=== PATIENT | female | born 1935 | race Caucasian/White ===

== ENCOUNTER → 2016-11-01 | Outpatient (CLI) | payer MEDICARE, OTHER ==
[~2016-11-01] MED LIST: AMLO10TA2 PO; ATOR20TA15 PO; ATOR20TA42 PO; DIGO0.12 PO; GLIP10TA6 PO; GLIP10TA67 PO; LATA.005%O EACH EYE; LATA0.002 EACH EYE; LOSA25TA PO; METF500T PO; ONGL5TAB PO; TOPR50TA PO; [UNRECOGNIZED DRUG - CODE] PO
[2016-11-01 12:02] LABS: AUTOMATED NEUTROPHIL # 6.6 TH/MM3 (1.8-7.7); BASOPHIL % 0.5 % (0.0-2.0); EOSINOPHIL # 0.1 TH/MM3 (0-0.4); EOSINOPHIL % 1.6 % (0.0-4.0); HEMATOCRIT 35.7 % (35.0-46.0); HEMO FLAGS DIFF FINAL; LYMPH % 16.2 % (9.0-44.0); LYMPHOCYTE # 1.4 TH/MM3 (1.0-4.8); MEAN CELL VOLUME 91.4 FL (80.0-100.0); MEAN CORPUSCULAR HGB CONC 32.9 % (32.0-36.0); MONO % 6.5 % (0.0-8.0); NEUT % 75.2 % (16.0-70.0); PLATELET COUNT 205 TH/MM3 (150-450); RED BLOOD COUNT 3.91 MIL/MM3 (4.00-5.30); WHITE BLOOD COUNT 8.7 TH/MM3 (4.0-11.0)
[2016-11-01 12:09] LABS: PROTHROMBIN TIME - PATIENT 10.8 SEC (9.8-11.6)
--- NOTE | 2016-11-01 12:22 | RADRPT ---
EXAM DATE/TIME: 11/01/2016 11:37 [place] COMPARISON: No previous studies available for comparison. INDICATIONS : Evaluate for pneumonia, pneumothorax or communicable disease. Preop chest for uterine surgery on 11/13 MEDICAL HISTORY : Carcinoma, vulva. Cardiovascular disease. skin cancer SURGICAL HISTORY : Pacemaker. Hysterectomy. ENCOUNTER: Initial ACUITY: 1 day PAIN SCORE: 0/10 LOCATION: Bilateral chest FINDINGS: A pacemaker is implanted in the left chest. The heart and pulmonary vascularity are normal. The por tions of the bony skeleton visualized reveal degenerative changes. CONCLUSION: Pacemaker. Otherwise, negative. Jose Miguel Denis MD FACR on November 01, 2016 at 12:11 Board Certified Radiologist. This report was verified electronically.
[2016-11-01 12:27] LABS: ANION GAP 9 MEQ/L (5-15); AST (GOT) 16 U/L (15-37); BICARBONATE 25.7 MEQ/L (21.0-32.0); BLOOD UREA NITROGEN 21 MG/DL (7-18); CHLORIDE 106 MEQ/L (98-107); GLOMERULAR FILTRATION RATE 74 ML/MIN (>89); GLUCOSE,FASTING 140 MG/DL (74-99); POTASSIUM 4.3 MEQ/L (3.5-5.1); SODIUM (NA) 141 MEQ/L (136-145)
[2016-11-01 12:30] LABS: ALKALINE PHOSPHATASE 64 U/L (45-117); ALT (GPT) 31 U/L (10-53); TOTAL BILIRUBIN ADULT 0.9 MG/DL (0.2-1.0)
--- NOTE | 2016-11-01 13:42 | EKG ---
Date Performed: 11/01/2016 Time Performed: 10:49:32 PTAGE: 81 years EKG: ELECTRONIC VENTRICULAR PACEMAKER ABNORMAL RHYTHM ECG NO PREVIOUS TRACING DOCTOR: Ba Marquez Interpretating Date/Time 11/01/2016 13:41:45
== END ==
LOC: CPRE 10:24
PROVIDERS: ATTEND Obstetrics & Gynecology Gynecologic Oncology
DX: Z01.812 Encounter for preprocedural laboratory examination (principal); Z01.810 Encounter for preprocedural cardiovascular examination; Z01.811 Encounter for preprocedural respiratory examination; R94.31 Abnormal electrocardiogram [ECG] [EKG]; Z95.0 Presence of cardiac pacemaker
CPT/HCPCS: 36415; 71020; 80053; 85025; 85610; 85730; 93005

== ENCOUNTER → 2016-11-13 | Day surgery (SDC) | payer MEDICARE, OTHER ==
[~2016-11-13] VITALS: Ht 152.4 cm; Wt 61.3 kg
[~2016-11-13] MED LIST changes: +*ONDANSETRON 4 MG VIAL PERIprocedural Use ONLY ONE; +*morphine SULFATE 8 MG/ML PERIprocedure ONLY ONE; +ACETAMINOPHEN 1000 MG/100 ML VIAL IV ONE; -ATOR20TA42 PO; +DO NOT ADM ANY ANTICOAGULANT DRUGS XX PRN; -GLIP10TA67 PO; +INSULIN HUMAN REGULAR 1,000 UNITS/10 ML VIAL SQ PRN; +KETOROLAC TROMETHAMINE 30 MG/ML (IVP) VIAL IV PUSH ONE; +LACTATED RINGER'S 1000 ML IV SCH; -LATA.005%O EACH EYE; +LIDOCAINE 1%/EPINEPHrine 1:100,000 SOLN 50 ML VIAL ONE; +METOPROLOL TARTRATE 25 MG TAB PO PRN; +ONDANSETRON HCL 4 MG/2 ML VIAL IV PUSH ONE; +PROPOFOL 200 MG/20 ML AMP IV ONE; +SODIUM CHLORID 0.9% 500 ML IV SCH; -TOPR50TA PO; -[UNRECOGNIZED DRUG - CODE] PO
[2016-11-13 11:23] VITALS: BP 152/65; PULSE 74; RESP 18; TEMP 97.9; O2SAT 98
[2016-11-13 16:05] VITALS: BP 122/57; PULSE 60; RESP 20; TEMP 97.5; O2SAT 97
--- NOTE | 2016-11-15 07:43 | MP ---
cc: AMARJIT GRACE MD, KELLY L. MD DATE OF PROCEDURE 11/13/2016 PREOPERATIVE DIAGNOSES 1. 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 2. History of vulvar lichen sclerosis. 3. Chronic vulvar irritation and pain. POSTOPERATIVE DIAGNOSES 1. 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 2. History of vulvar lichen sclerosis. 3. Chronic vulvar irritation and pain. PROCEDURE Examination under anesthesia, multifocal biopsies. 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 ANESTHESIA Laryngeal mask anesthesia ESTIMATED BLOOD LOSS Less than 20 cc. HISTORY An 81-year-old female who in approximately 2011 underwent modified radical vulvectomy and inguinal node dissection for invasive squamous cell carcinoma of the vulva. She has been followed periodically without overt evidence of recurrent disease. She also has a preexisting history of lichen sclerosis of the vulva and between the lichen sclerosis and radical surgery she has significant anatomical changes to the external genitalia. She is also troubled by chronic vulvar irritation and pain. She has a areas around the introitus to where the skin is irritated. It is variably hypopigmented and erythematous, slightly raised. It is quite tender, so much so that she cannot tolerate office exams and certainly declined any office biopsies due to discomfort and intolerance of these biopsies. She was counseled regarding these findings and our recommendation to clarify the underlying condition and she presents now for exam under anesthesia with multiple biopsies. FINDINGS The findings on exam are as previously documented. There is no appreciable inguinal adenopathy. External genitalia has changes consistent with prior radical surgery and with previous lichen sclerosis. There are four anatomical areas identified that have skin changes as described above including the right vulva at the 10-11 o'clock position, the left vulva at the 12 to 1 o'clock position, the right vulva at 7-8 o'clock position and the perineum. Each of these areas are evaluated with tissue biopsy for further clarification. There is no overt change to suggest invasive malignancy, although this is considered in our differential diagnosis. PROCEDURE The patient was taken to the operating room, placed in dorsal lithotomy position after laryngeal mask anesthesia was administered. Time-out was undertaken. The patient was [facility] and the proposed procedure was reviewed and confirmed. Exam under anesthesia was performed with findings as described above. She was prepped and draped in sterile fashion. In-and-out catheterization the bladder was performed. The four anatomical areas as outlined were marked, each with two separate locations using a sterile marker, then lidocaine epinephrine was injected. A 3-mm dermal punch biopsy was taken to a depth below into the subcutaneous tissue. Two biopsies were taken first from the right vulva at 10-11 o'clock. Next two biopsies were taken from the left vulva at 12 to 1 o'clock, then two biopsies from the right vulva at 7-8 o'clock and then two biopsies from the perineum. At each anatomical location both biopsies were combined into a single specimen so that there was a total of four specimens representing the four anatomical areas of abnormal-appearing skin. Each biopsy site was rendered hemostatic, reapproximated with an interrupted 3-0 Vicryl suture. All sites were hemostatic. Skin edges reapproximated. Pelvic exam confirmed no remaining foreign objects in the vagina. Preliminary and final counts were correct. She was returned to dorsal supine position and was pending reversal of anesthesia when I left the operating room to precede her to the Post-Anesthesia Care Unit. MD HINA Martin/YUDITH /2:02 PM /7:25 AM
== END | disposition home or self-care (01) ==
LOC: HSDC 10:38
PROVIDERS: ATTEND Obstetrics & Gynecology Gynecologic Oncology
DX: C51.9 Malignant neoplasm of vulva, unspecified (principal); I10 Essential (primary) hypertension
CPT/HCPCS: 00940; 56821; 86850; 86900; 86901; 88305; J0131; J1885; J2270; J2405; J3010; J7120